=== PATIENT | male | born 1950 | race Caucasian/White ===

== ENCOUNTER 2016-09-16 06:28 | Day surgery (SDC) | payer BC, OTHER ==
[2016-09-16] MEDS ORDERED: Lidocaine 1% with EPINEPHrine 1:100,000 50 ML MDV ONE (06:53)
[2016-09-16] MEDS ORDERED: Bupivacaine 0.5% 50 ML MDV ONE (06:53)
[2016-09-16] MEDS ORDERED: Propofol 200 MG/20 ML SDV ONE (07:23)
[2016-09-16] MEDS ORDERED: Midazolam 1 MG/ML 2 ML SDV ONE (07:23)
[2016-09-16] MEDS ORDERED: fentaNYL 100 MCG/2 ML SDV ONE (07:23)
[2016-09-16] MEDS ORDERED: Dextrose 5%-Lactated Ringers 1,000 ML IV SCH (07:30)
[2016-09-16] MEDS ORDERED: ceFAZolin 2 GM in Premix Bag 1 BAG IV ONE (08:00)
[2016-09-16] MEDS ORDERED: Linezolid 200 MG/100 ML Bag IRR ONE (08:21)
[2016-09-16 10:09] VITALS: BP 122/71
--- NOTE | 2016-09-23 15:18 | OR ---
DATE OF PROCEDURE: 09/16/2016 PREOPERATIVE DIAGNOSIS: Inflamed epidermoid cyst, left upper back. POSTOPERATIVE DIAGNOSIS: Inflamed epidermoid cyst, left upper back. OPERATIVE PROCEDURE: Excision of inflamed epidermoid cyst, left upper back with layered closure ([id number]). ANESTHESIA: Local plus IV sedation. INDICATION FOR PROCEDURE: A 66-year-old male presenting with a large epidermoid cysts on his upper back just to the left of the midline. Plan is to proceed with excision of this with the closure assuming that infected material was encountered during the course of the dissection. Potential risks including bleeding, infection, possible recurrence of the process over time was reviewed, and the patient wishes to proceed. DETAILS OF PROCEDURE: The patient was taken to the operating room and placed in a right lateral decubitus position. IV sedation was administered after which the upper back area was prepped and draped, and that has been anesthetized with 1% lidocaine mixed with Marcaine. An elliptical incision around the lesion was then made in transverse orientation, carried down through the skin and subcutaneous tissue, careful dissection was maintained to avoid entering the cyst itself and the cyst was removed, in fact the lesion itself measured 6.5 cm and incision length was 10.5 cm. The wound was irrigated with Zyvox-containing saline solution and then closed with 2 layers of 3-0 Vicryl stitch deep, some 4-0 Vicryl subdermal stitch, and ruth for the skin. Dressing was applied. The patient was taken to the recovery room in satisfactory. Shadi Odonnell MD /[id number]
== END 2016-09-16 10:00 | disposition home or self-care (01) ==
LOC: JP.SDS 06:28
PROVIDERS: ATTEND Surgery
DX: L72.0 Epidermal cyst (principal)
CPT/HCPCS: 11406; 12034; 87070; 87075; 87205; 88304; J0690; J2020; J2250; J2704; J3010; J7042